=== PATIENT | male | born 1970 | race Two or more races ===

== ENCOUNTER 2019-10-27 17:02 | Outpatient (CLI) | payer OTHER ==
[~2019-10-27 17:02] MED LIST: KETO10TA2 PO
== END 2019-10-27 17:14 | disposition home or self-care (01) ==
LOC: LAB 17:02
PROVIDERS: ATTEND General Practice
DX: Z20.828 Contact with and (suspected) exposure to other viral communicable diseases (principal); Z11.59 Encounter for screening for other viral diseases

== ENCOUNTER 2019-12-05 07:13 | Outpatient (CLI) | payer OTHER | END 2019-12-05 13:18 | disposition home or self-care (01) | LOC: LAB 07:13 | DX: D64.89 Other specified anemias (principal); D68.8 Other specified coagulation defects; I10 Essential (primary) hypertension; R53.0 Neoplastic (malignant) related fatigue; Z11.4 Encounter for screening for human immunodeficiency virus [HIV] ==

== ENCOUNTER → 2020-03-10 10:36 | Outpatient (CLI) | payer OTHER | END | disposition home or self-care (01) | LOC: LAB 10:36 | PROVIDERS: ATTEND General Practice | DX: R00.2 Palpitations (principal); R07.89 Other chest pain ==